=== PATIENT | female | born 1960 | race Hispanic/Latino ===

== ENCOUNTER 2023-10-13 20:44 | Emergency (ER) | payer MEDICAID ==
[~2023-10-13] VITALS: Ht 157.5 cm; Wt 85.3 kg
[~2023-10-13 20:44] MED LIST: TRAM1TAB2 PO
[2023-10-13 21:16] LABS: BASOPHILS # (AUTO) 0.04 K/uL (0.00-0.20); BASOPHILS % (AUTO) 0.4 % (0.0-5.0); EOSINOPHILS # (AUTO) 0.08 K/uL (0.00-0.70); EOSINOPHILS % (AUTO) 0.8 % (0.0-8.0); HEMATOCRIT 40.2 % (36-48); IMMATURE GRANULOCYTE ABSOLUTE 0.02 K/uL (0-1); LYMPHOCYTES # (AUTO) 2.4 K/uL (1.0-4.8); LYMPHOCYTES % (AUTO) 23.1 % (21.0-51.0); MEAN CORPUSCULAR HEMOGLOBIN 31.6 pg (27.0-33.0); MEAN CORPUSCULAR HGB CONC 33.8 g/dL (32.0-36.0); MEAN CORPUSCULAR VOLUME 93.5 fL (79-99); MONOCYTES # (AUTO) 0.8 K/uL (0.1-1.0); MONOCYTES % (AUTO) 7.7 % (3.0-13.0); NEUTROPHILS # (AUTO) 7.2 K/uL (1.8-7.7); NEUTROPHILS % (AUTO) 67.8 % (40.0-77.0); PLATELET COUNT (AUTO) 220 K/uL (130-400); RED CELL DISTRIBUTION WIDTH 12.4 % (11.0-15.5); WHITE BLOOD COUNT (AUTO) 10.6 K/uL (4.8-10.8)
[2023-10-13 21:23] VITALS: BP 125/53; PULSE 84; RESP 20; O2SAT 98
[2023-10-13 21:25] LABS: CREATININE 0.9 mg/dL (0.5-1.0); POTASSIUM 3.4 mmol/L (3.5-5.1)
[2023-10-13] MEDS: HYDROCODONE/ACETAMINOPHEN 5/325 MG TAB PO STA (22:49)
[2023-10-13] MEDS: KETOROLAC 15MG/ML VIAL (15MG/ML) IM STA (22:49)
[2023-10-13 23:44] LABS: INFLUENZA TYPE A Negative For Type A (NEGATIVE); INFLUENZA TYPE B Negative For Type B (NEGATIVE); SARS-CoV-2, RNA, NAAT NEGATIVE SARS CoV-2 (NEGATIVE)
== END 2023-10-14 00:22 | disposition home or self-care (01) ==
LOC: EDH 20:44
DX: M19.90 Unspecified osteoarthritis, unspecified site (principal); E11.9 Type 2 diabetes mellitus without complications; E78.00 Pure hypercholesterolemia, unspecified; I10 Essential (primary) hypertension; Z20.822 Contact with and (suspected) exposure to COVID-19
CPT/HCPCS: 99285; 71045; 87635; 84484; 80048; 85025; 87804 ×2; 36415; 96372; 93005; J1885

== ENCOUNTER 2024-03-31 09:49 | Emergency (ER) | payer MEDICAID ==
[~2024-03-31] VITALS: Ht 154.9 cm; Wt 81.6 kg
[2024-03-31] MEDS ORDERED: AMOX-427 PO (10:20)
--- NOTE | 2024-03-31 10:20 | ERN ---
ED Note History of Present Illness Stated Complaint: DOG BITE Chief Complaint: Animal Bite Time Seen by MD: 10:04 Dictation: 63-year-old female presents to the ED for evaluation of dog bite onset last night. Patient reports left foot pain, but denies fever or any other as sociated symptoms at this time. Patient states she was at her friend's house and got bit by her friend's aggressive dog who as per friend is fully vaccinated. Patient does not remember the last time she got her tetanus shot. Allergies: Coded Allergies: No Known Allergies (Unverified Allergy, Unknown, 08/26/21) Home Meds Active Scripts Amoxicillin/Potassium Clav (Augmentin Xr 1,000-62.5 Tab) 1,000 Mg-62.5 Mg Tab.er.12h, 1 TAB PO BID for 7 Days, #14 TAB 0 Refills with food Prov:JABIER MANZANO MD 03/31/24 Tramadol HCl/Acetaminophen (Ultracet Tablet) 1 Each Tablet, 1 EACH PO TID for SEVERE PAIN, #25 TAB Prov:DOROTHY ORELLANA MD 08/26/21 Past Medical History Past Medical History: Arthritis, Depression, Diabetes-Type II, High Cholesterol, Hypertension Surgical History: None Surgical History Other: RT KNEE AND RT LEG Social History: Negative, Lives with family History: Not Applicable Review of System Dictation Constitutional: Negative for fever,chills, and weight loss Eyes: Negative for injury, pain,redness, and discharge ENT: Negative for injury,pain or swelling Cardiovascular: Negative for chest pain, palpitations, and edema Respiratory: Negative for shortness of breath, cough, and wheezing, Abdomen/GI: Negative for abdominal pain, nausea, vomiting, diarrhea, and cons tipation Back: Negative for injury and pain : Negative for injury, bleeding and discharge MS/Extremity: Positive for left foot pain Negative for injury and deformity Skin: Positive for dog bite Negative for rash, and discoloration Neuro: Negative for headache, weakness, numbness, tingling, and seizure Psych: Negative for suicide ideation, homicidal ideation, and hallucinations Initial Vital Sign VS Vital Signs Date Time Temp Pulse Resp B/P (MAP) Pulse Ox O2 Delivery O2 Flow Rate FiO2 03/31/24 09:53 98.8 78 18 125/74 99 Physical Exam Dictation General: awake, alert, NAD Head/Face: Normocephalic, atraumatic Eyes: PERRL, EOMI, vision at baseline ENT: oral cavity clear, TMs clear, no signs of infection Neck: Trachea midline, supple, no nuchal rigidity Cardiovascular: RRR, normal S1/S2, No MRGs, no JVD Respiratory: CTAB, no respiratory distress, No rales or wheezes Abdomen: Soft, non-tender, non-distended, normal bowel sounds, no guarding or rebound. Skin: Warm, dry, normal turgor, no rash MS/Extremity: Pulses equal, no cyanosis, neurovascular intact, FROM, puncture wound to left lateral foot, no signs of infection, no erythema Neuro: COAx4, GCS 15, strength 5/5, CN 2-12 intact, normal cerebellar exam, normal gait, Psych: Normal behavior, mood, and affect normal ED Course ED Course Orders Procedure Category Date Status Time Tetanus,Diphtheria PHA 03/31/24 Complete Tox [Adult] (Diphther 10:30 Current Medications Medications (Trade) Dose Ordered Sig/Sunny Route PRN Reason Start Time Stop Time Status Last Admin Dose Admin Tetanus/ Diphtheria Toxoids Adsorbed (DiphthERIA-teTANUS TOXOID [ADULT]/ DECAVAC) 0.5 ml ONCE ONCE IM 03/31/24 10:30 03/31/24 10:31 DC Vital Signs Date Time Temp Pulse Resp B/P (MAP) Pulse Ox O2 Delivery O2 Flow Rate FiO2 03/31/24 09:53 98.8 78 18 125/74 99 Medical Decision Making MDM MDM: Differential diagnosis: Dog bite, animal bite, left foot dog bite Previous outside records reviewed: Old ER visits. Need for hospitalization: Patient does not meet criteria for hospitalization. Need for emergency major/minor surgery: No Patient's prior external medical records from other ER visits were reviewed by me as indicated. Prior testing and results from previous visits were reviewed. Prior tests were taken into account with medical decision making and resource utilization, independent historian/historians were used to obtain complete medical history. I independently interpreted the test that were performed, results were reviewed by me and considered findings on radiology if ordered. Medical management and examination interpretation discussions were had by me with other qualified healthcare professionals as indicated for the patient's care. DX & DISP Disposition: Discharge Departure Impression: Primary Impression: Dog bite of left foot Condition: Stable Scripts Amoxicillin/Potassium Clav (Augmentin Xr 1,000-62.5 Tab) 1,000 Mg-62.5 Mg Tab.er.12h 1 TAB PO BID for 7 Days, #14 TAB 0 Refills with food Prov: JABIER MANZANO MD 03/31/24 Referrals: HEATHER MISTRY DO (PCP) I have reviewed, & agreed with my scribe's, documentation. (Entered by Nasir Luna, acting as a scribe for Dr. Manzano) I personally scribed for JABIER MANZANO MD ([email or web address]) on 03/31/24 at 10:40. Electronically submitted by Nasir Luna ([email or web address]). JABIER MANZANO MD Mar 31, 2024 10:20
--- NOTE | 2024-03-31 10:50 | NUR ---
[facility] CALLED FOR ANIMAL BITE REPORT
[2024-03-31] MEDS: teTANUS/diphthERIA TOXOID [ADULT] 0.5 ML VIAL IM ONE (10:54)
--- NOTE | 2024-03-31 11:18 | NUR ---
Ilir BURKS [id number] INCIDENT #[id number]
[2024-03-31 11:20] VITALS: BP 121/73; PULSE 76; RESP 18; TEMP 98.7; O2SAT 99
== END 2024-03-31 11:20 | disposition home or self-care (01) ==
LOC: EDH 09:49
DX: S91.352A Open bite, left foot, initial encounter (principal); M19.90 Unspecified osteoarthritis, unspecified site; E11.9 Type 2 diabetes mellitus without complications; E78.00 Pure hypercholesterolemia, unspecified; I10 Essential (primary) hypertension; W54.0XXA Bitten by dog, initial encounter; Y93.89 Activity, other specified; Y92.89 Other specified places as the place of occurrence of the external cause; Y99.8 Other external cause status
CPT/HCPCS: 90471; 90714; 99283